=== PATIENT | female | born 1945 | race Caucasian/White ===

== ENCOUNTER 2019-11-09 12:17 | Outpatient (CLI) | payer MEDICARE, SELFPAY ==
--- NOTE | ~2019-11-09 | US_ITS ---
EXAMINATION: US thyroid DATE: 11/09/2019 13:07 INDICATION: Thyromegaly. TECHNIQUE: Multiple ultrasound images of the thyroid were obtained. COMPARISON: Ultrasound 11/04/2007 FINDINGS: The right thyroid lobe measures 6.4 x 2.7 x 2.6 cm. The left thyroid lobe measures 6.5 x 3.5 x 3.1 c m. The thyroid demonstrates heterogeneous echogenicity, which is chronic. No discrete nodule. Vascul arity is normal. IMPRESSION: 1. Chronically heterogeneous thyroid, likely chronic lymphocytic (Bill) thyroiditis. Reviewed, dictated and finalized at location A. SLATIVE CORRESPONDENT IMPRESSION: 1. Chronically heterogeneous thyroid, likely chronic lymphocytic (Bill) th yroiditis.
== END 2019-11-09 12:18 | disposition home or self-care (01) ==
LOC: ANHIMG 12:19
PROVIDERS: PCP Internal Medicine; Visit Provider Physician Assistant
DX: E01.0 Iodine-deficiency related diffuse (endemic) goiter (principal)
CPT/HCPCS: 76536

== ENCOUNTER → 2020-06-14 13:06 | Outpatient (CLI) | payer MEDICARE, SELFPAY ==
--- NOTE | ~2020-06-14 | XR_ITS ---
XR lumbar spine 2-3V 06/14/2020 13:41 Indication: Low back pain Procedure: 3 views lumbar spine Comparison: No prior studies for comparison. Findings: There is disc narrowing and endplate degenerative change at L4-5. There is disc narrowing a t the remainder of the lumbar disc levels, most advanced at L3-4, L4-5 and L5-S1. There is moderate m ultilevel facet hypertrophy. There is grade 1 cyst degenerative spondylolisthesis at L4-5. No acute f racture or traumatic malalignment. There are surgical clips in the right mid abdomen. Impression: 1: Moderate-severe lumbar spondylosis. Reviewed, dictated and finalized at location A. Impression: 1: Moderate-severe lumbar spondylosis.
== END ==
PROVIDERS: PCP Internal Medicine; Visit Provider Internal Medicine
DX: M54.9 Dorsalgia, unspecified (principal); M47.816 Spondylosis without myelopathy or radiculopathy, lumbar region
CPT/HCPCS: 72100

== ENCOUNTER → 2020-11-04 17:05 | Outpatient (CLI) | payer MEDICARE, SELFPAY ==
--- NOTE | ~2020-11-04 | MM_ITS ---
EXAMINATION: MM screening rell BI w libby HISTORY: Screening mammogram, family history of breast cancer in her mother and sister. TECHNIQUE: Craniocaudal and mediolateral oblique 3-D tomosynthesis images were obtained and synthetic 2-D images were generated. CAD analysis was submitted and interpreted. COMPARISON: 09/15/2019, 07/19/2018, 05/06/2017 BREAST PARENCHYMAL COMPOSITION: There are scattered areas of fibroglandular density. FINDINGS: Scattered benign-appearing calcifications are present. There is no evidence of suspicious m ass, calcification, or architectural distortion to suggest malignancy in either breast. There has bee n no suspicious interval change. IMPRESSION: 1. No mammographic evidence of malignancy. 2. Recommend routine screening mammography in one year. BI-RADS Category 2: Benign finding(s). Reviewed, dictated and finalized at location A. TECH
== END ==
PROVIDERS: Visit Provider Obstetrics & Gynecology
DX: Z12.31 Encounter for screening mammogram for malignant neoplasm of breast (principal)
CPT/HCPCS: 77063; 77067

== ENCOUNTER → 2020-11-15 12:49 | Outpatient (CLI) | payer MEDICARE, SELFPAY ==
--- NOTE | ~2020-11-15 | XR_ITS ---
EXAMINATION: XR lumbar spine min 4V DATE: 11/15/2020 13:24 INDICATION: Low back pain TECHNIQUE: Anteroposterior and lateral in neutral, flexion and extension views of the lumbar spine, a nd cone-down lateral view of the lumbosacral junction were obtained. COMPARISON: 06/14/2020 FINDINGS: There are 4 mm of anterolisthesis of L4 on L5. No laxity is present with flexion or extensi on. There is severe loss of intervertebral disc space height at L4-5. Moderate loss of intervertebral disc space height is present throughout the remainder of the lumbar spine. The vertebral body height s are maintained. There is no fracture. Moderate facet osteoarthritis is noted in the lower lumbar sp ine. There are surgical clips in the right upper quadrant with chronic pneumobilia. IMPRESSION: 1. Moderate to severe lumbar spondylosis without acute findings or significant interval change. Reviewed, dictated and finalized at location A. ER GUN
== END ==
PROVIDERS: PCP Internal Medicine
DX: M54.5 Low back pain (principal); M47.816 Spondylosis without myelopathy or radiculopathy, lumbar region
CPT/HCPCS: 72110

== ENCOUNTER → 2021-07-28 03:28 | Outpatient (CLI) | payer MEDICARE, SELFPAY ==
[2021-07-28 19:59] LABS: SARS-CoV-2 RNA PCR Negative
== END ==
PROVIDERS: PCP Internal Medicine; Visit Provider Physician Assistant
DX: Z01.812 Encounter for preprocedural laboratory examination (principal); Z20.822 Contact with and (suspected) exposure to COVID-19
CPT/HCPCS: C9803; U0003; U0005

== ENCOUNTER → 2021-12-19 04:49 | Outpatient (CLI) | payer MEDICARE, SELFPAY ==
[2021-12-19 12:35] LABS: SARS-CoV-2 RNA PCR Negative
== END ==
PROVIDERS: PCP Internal Medicine; Visit Provider Physician Assistant
DX: R68.89 Other general symptoms and signs (principal); Z20.822 Contact with and (suspected) exposure to COVID-19
CPT/HCPCS: C9803; U0003; U0005

== ENCOUNTER → 2022-01-15 10:44 | Outpatient (CLI) | payer MEDICARE, SELFPAY ==
--- NOTE | ~2022-01-15 | MM_ITS ---
EXAMINATION: MM screening rell BI w libby HISTORY: Screening TECHNIQUE: Craniocaudal and mediolateral oblique 3-D tomosynthesis images were obtained and synthetic 2-D images were generated. CAD analysis was submitted and interpreted. COMPARISON: Comparison to multiple prior studies sequentially, with oldest reviewed study dated 12/2014. BREAST PARENCHYMAL COMPOSITION: The breasts are heterogenously dense, which may obscure small masses FINDINGS: There are extensive benign bilateral breast calcifications unchanged. There is no evidence of suspicious mass, calcification, or architectural distortion to suggest malignancy in either breast . There has been no suspicious interval change. IMPRESSION: 1. No mammographic evidence of malignancy. 2. Recommend routine screening mammography in one year. BI-RADS Category 2: Benign finding(s). Reviewed, dictated and finalized at location A.
== END ==
PROVIDERS: PCP Internal Medicine; Visit Provider Obstetrics & Gynecology
DX: Z12.31 Encounter for screening mammogram for malignant neoplasm of breast (principal)
CPT/HCPCS: 77063; 77067

== ENCOUNTER 2023-02-08 12:39 | Outpatient (CLI) | payer MEDICARE, SELFPAY ==
[2023-02-08 13:48] LABS: SARS-CoV-2 RNA PCR Negative (Negative)
== END 2023-02-08 12:40 | disposition home or self-care (01) ==
PROVIDERS: PCP Internal Medicine; Visit Provider Physician Assistant
DX: R68.89 Other general symptoms and signs (principal); Z20.822 Contact with and (suspected) exposure to COVID-19
CPT/HCPCS: U0003; U0005

== ENCOUNTER → 2023-04-09 15:35 | Outpatient (CLI) | payer MEDICARE, SELFPAY ==
--- NOTE | ~2023-04-09 | MM_ITS ---
EXAMINATION: MM screening rell BI w libby HISTORY: Screening mammogram, family history of breast cancer in her mother and sister. TECHNIQUE: Craniocaudal and mediolateral oblique 3-D tomosynthesis images were obtained and synthetic 2-D images were generated. CAD analysis was submitted and interpreted. COMPARISON: 01/15/2022, 11/04/2020, 09/15/2019 BREAST PARENCHYMAL COMPOSITION: The breasts are heterogeneously dense, which may obscure small masses . FINDINGS: Scattered benign-appearing calcifications are present. No suspicious mass, calcification, o r architectural distortion are identified in either breast to suggest malignancy. There has been no s uspicious interval change. IMPRESSION: 1. No mammographic evidence of malignancy. 2. Recommend routine screening mammography in one year. BI-RADS Category 2: Benign finding(s). Reviewed, dictated and finalized at location A.
== END ==
PROVIDERS: PCP Obstetrics & Gynecology; Visit Provider Obstetrics & Gynecology
DX: Z12.31 Encounter for screening mammogram for malignant neoplasm of breast (principal)
CPT/HCPCS: 77063; 77067

== ENCOUNTER 2023-04-26 14:04 | Outpatient (CLI) | payer MEDICARE, SELFPAY ==
--- NOTE | ~2023-04-26 | XR_ITS ---
Right foot Technique: AP, oblique, and lateral views were obtained. Clinical History: Pain Findings: No acute fracture or dislocation is seen. There is severe osteoarthritis of the first metat arsophalangeal joint. There is probable mild degenerative change of the tarsometatarsal articulations . Soft tissues are unremarkable. Impression: No fracture or dislocation. Severe osteoarthritis of the first metatarsophalangeal joint. Mild degenerative change of the tarsometatarsal articulations. Reviewed, dictated and finalized at location M. Impression: No fracture or dislocation. Severe osteoarthritis of the first metatarsophalangeal joint. Mild degenerative change of the tarsometatarsal articulations.
--- NOTE | ~2023-04-26 | XR_ITS ---
Right ankle Technique: AP, oblique, and lateral views were obtained. Clinical History: Swelling Findings: No acute fracture or dislocation is seen. Osseous alignment is anatomic. Ankle mortise and other visualized joint spaces are preserved. There is mild diffuse soft tissue edema, especially over the lateral ankle. Impression: Mild diffuse soft tissue edema, especially of the lateral ankle, nonspecific. Reviewed, dictated and finalized at [facility]. Impression: Mild diffuse soft tissue edema, especially of the lateral ankle, nonspecific.
== END 2023-04-26 14:05 | disposition home or self-care (01) ==
PROVIDERS: PCP Internal Medicine; Visit Provider Physician Assistant
DX: M25.471 Effusion, right ankle (principal); M19.071 Primary osteoarthritis, right ankle and foot
CPT/HCPCS: 73610; 73630

== ENCOUNTER 2024-06-14 10:29 | Emergency (ER) | payer MEDICARE, SELFPAY ==
[2024-06-14] VITALS (21 sets, daily range): BP systolic 123–206; BP diastolic 64–101; PULSE 75–104; RESP 12–21; TEMP 36.9; O2SAT 99–100
--- NOTE | ~2024-06-14 | CT_ITS ---
EXAMINATION: CTA brain carotid DATE: 06/14/2024 11:06 INDICATION: Headache. Stroke. TECHNIQUE: Computed tomographic angiography (CTA) of the head was performed without and with 100 mL O mnipaque-350 intravenous contrast. CTA of the neck was performed with intravenous contrast. Automated exposure control and iterative reconstruction technique were employed. The dose-length product was 1 431.19 mGy-cm. Maximum intensity projection and volume rendered 3D-reconstructions were created by audrey bowling technologist on a separate workstation. COMPARISON: None. FINDINGS: HEAD CTA: There are scattered areas of low attenuation in the cerebral white matter. There is no acut e infarction or abnormal intracranial mass lesion. There are small foci of acute subarachnoid hemorrh age superior to right frontal lobe. The ventricles are normal in size. There is mild mucosal thickeni ng in the ethmoid sinuses. The mastoid air cells are normal. There are likely changes of ocular lens replacement surgeries. There is a left-sided scalp hematoma. Right vertebral artery is dominant. Ther e is no significant stenosis of basilar artery or the posterior cerebral arteries. There is no signif icant stenosis of the intracranial internal carotid arteries or anterior or middle cerebral arteries. Anterior communicating artery is normal. The posterior communicating arteries are normal. There is n o aneurysm. NECK CTA: There are no pathologically enlarged lymph nodes. There is a endotracheal tube tip in expec jayashree position. Partially visualized is a nasogastric tube. There is no significant stenosis of the ady tebral arteries. There is plaque in the proximal internal carotid arteries. There is 0% stenosis of t he proximal right internal carotid artery relative to normal distal artery lumen diameter (NASCET cri teria). There is 0% stenosis of the proximal left internal carotid artery relative to normal distal a rtery lumen diameter. There is severe cervical spondylosis. There is mild chronic anterior wedging of C7 and T1 vertebral bodies. IMPRESSION: 1. Small volume of acute subarachnoid hemorrhage superior to right frontal lobe. I called this result to Dr. Alvarado. 2. Moderate nonspecific cerebral white matter disease, which likely represents chronic small vessel i schemic disease. 3. No aneurysm or significant intracranial arterial stenosis. 4. 0% stenosis of the proximal internal carotid arteries relative to normal distal artery lumen diame ters (NASCET criteria). Reviewed, dictated and finalized at location A. IMPRESSION: 1. Small volume of acute subarachnoid hemorrhage superior to right frontal lobe . I called this result to Dr. Alvarado. 2. Moderate nonspecific cerebral white matter disease, which likely represents chronic small vessel ischemic disease. 3. No aneurysm or significant intracranial arterial stenosis. 4. 0% stenosis of the proximal internal carotid arteries relative to normal dis mario artery lumen diameters (NASCET criteria).
--- NOTE | ~2024-06-14 | XR_ITS ---
EXAMINATION: XR chest ET placement, XR abdomen gastric tube insert DATE: 06/14/2024 10:54 INDICATION: Endotracheal tube placement and orogastric tube placement. TECHNIQUE: 1. AP view of the chest was obtained. 2. AP view of the abdomen was obtained. COMPARISON: None FINDINGS: Endotracheal tube tip 1.0 cm above the tomás. Nasogastric tube tip in proximal side port in the body of the stomach. There is enlargement of the central pulmonary arteries consistent with pulmonary arterial hypertensio n. Mild linear discoid atelectasis in the lateral right midlung zone. No other airspace opacities, pu lmonary edema, pleural effusion or pneumothorax. Heart size within normal limits for AP technique. [place] perior right mediastinal opacities which appear to correspond to a tortuous vasculature on carotid CT dated 10/24/2019. Cholecystectomy clips in right upper quadrant. No dilated loops of gas-filled bowel to suggest obstruction. IMPRESSION: 1. Endotracheal tube and nasogastric tube in expected positions. 2. Enlargement of the central pulmonary arteries consistent with pulmonary arterial hypertension. Reviewed, dictated and finalized at location B. IMPRESSION: 1. Endotracheal tube and nasogastric tube in expected positions. 2. Enlargement of the central pulmonary arteries consistent with pulmonary shanice rial hypertension.
--- NOTE | 2024-06-14 10:36 | ED.NEUROSD ---
HPI - Neuro Symptoms/Deficit General Chief Complaint: Suspected CVA Stated Complaint: Code stroke Time Seen by Provider: 06/14/24 10:30 History of Present Illness HPI Narrative: Patient is an 78-year-old female who presents ER with reports of unresponsiveness per EMS and possible stroke. Patient at 8:30 a.m. had sudden onset headache. At 9:30 a.m. she collapsed to the ground. A data assistant went and got the neighbor who then called 911. Patient is not on blood thinning medications. Patient became combative and ambulance and is screaming and fighting. Cannot follow any commands. She has full strength in all extremities no facial droop. Related Data Home Medications Medication Instructions Recorded Confirmed aspirin 325 mg tablet 325 mg PO DAILY 08/28/19 03/07/24 vit C 226 mg-vit E 90 mg-copper cap PO 08/28/19 03/07/24 0.8 mg-zinc oxide-lutein 5 mg capsule (PreserVision Lutein) allopurinol 300 mg tablet 300 mg PO DAILY 09/14/23 03/07/24 fexofenadine 180 mg tablet 180 mg PO DAILY 03/07/24 03/07/24 (Mckayla Allergy) Allergies Allergy/AdvReac Type Severity Reaction Status Date / Time acetaminophen Allergy Severe liver Verified 03/07/24 07:50 problem aspirin Allergy Intermediate Unknown Verified 03/07/24 07:50 [From Darvon Compound-65] caffeine Allergy Intermediate Unknown Verified 03/07/24 07:50 [From Darvon Compound-65] tree and shrub pollen Allergy Intermediate Sneezing Verified 03/07/24 07:50 codeine Allergy Mild Hallucinati Verified 03/07/24 07:50 ng levofloxacin Allergy Mild unkown Verified 03/07/24 07:50 meperidine Allergy Mild Rash,Itchin Verified 06/14/24 11:15 g Penicillins Allergy Mild Rash Verified 03/07/24 07:50 propoxyphene Allergy Mild unknown Verified 03/07/24 07:50 venom-wasp Allergy Unknown Hives, Verified 03/07/24 07:50 swelling SEAFOOD Allergy Severe violently Uncoded 03/07/24 07:50 ill per pt Yellow Hornet Allergy Severe Swelling Uncoded 03/07/24 07:50 Yellow Jacket Allergy Severe Swelling Uncoded 03/07/24 07:50 Dust Allergy Intermediate Wheezing Uncoded 03/07/24 07:50 Grass Allergy Intermediate Wheezing Uncoded 03/07/24 07:50 Review of Systems Review of Systems: ROS unobtainable: Yes unobtainable due to mental status PMFSH Past Medical History Medical History Arthritis Asthma Bronchitis Cataract Diabetes GERD (gastroesophageal reflux disease) Glaucoma Hypertension Hypothyroidism Liver disease Mitral valve prolapse Olecranon bursitis, right elbow Osteoporosis Pneumonia Rectal polyp Surgical History Surgical History H/O breast surgery (~1999) 2000 - L breast biopsy benign H/O cataract removal with insertion of prosthetic lens H/O gynecological procedure 10/04/1981 NAM BSO - uterine fibroids H/O: hysterectomy History of appendectomy History of knee replacement Hx of cholecystectomy Hx of tonsillectomy Family History Family History Father Patient's father is Family history of pancreatic cancer Sibling Family history of arthritis Family history of malignant neoplasm of breast in first degree relative Patient's sister is , Onset Age: 1 Mother Family history of Alzheimer's disease Family history of congestive heart failure Patient's mother is Social History Social History Smoking status: Never smoker Second hand tobacco smoke exposure: No Alcohol intake: never Substance use: never Lack of Transportation: No Lack of Food: Never True Current Housing: I Have Housing Concerned About Future Housing: No Difficulty Paying Gas/Electric Bills: No Difficulty Paying for Meds: No Currently Unemployed: No Education: High School Diploma
--- NOTE | 2024-06-14 10:44 | ECG_ITS ---
Test Date: 2024-06-14 11:15:32 Measurements Intervals [place] Rate: 102 P: 14 [place]: 154 QRS: -20 QRSD: 99 T: 65 QT: 338 QTc: 441 Interpretive Statements SINUS TACHYCARDIA CANNOT R/O SEPTAL INFARCT, AGE INDETERMINATE BORDERLINE ST-T WAVE ABNORMALITY- ANTEROLAT/HIGH LAT LEADS BASELINE ARTIFACT- I, II, III, AVR, AVL, AVF, V1-V6 ABNORMAL ECG No previous ECG available for comparison Electronically Signed On 06-14-2024 11:43:30 CDT by Héctor Peña D.O.
[2024-06-14] MEDS: PROPOFOL IV EMULSION 100 ML 2.22 MG IV CONT (10:46)
--- NOTE | 2024-06-14 10:51 | PC.NURSE ---
Dr Alvarado pushed propofol 50mg/5ml push for sedation - pt on her way to CT scan
[2024-06-14 10:54] LABS: Basophils Absolute Auto 0.1 K/mm3 (0.0-0.1); Basophils Percent Auto 0.5 % (0.2-1.2); Eosinophils Absolute Auto 0.1 K/mm3 (0-0.3); Eosinophils Percent Auto 0.7 % (0-4.4); Hematocrit 43.3 % (37.0-47.0); Hemoglobin 13.8 g/dL (12.0-15.0); Immature Granulocyte Absolute 0.06 K/mm3 (0.00-0.031); Immature Granulocyte Percent A 0.6 % (0-0.5); Lymphocytes Absolute Auto 1.77 K/mm3 (0.9-3.2); Lymphocytes Percent Auto 16.8 % (18.3-44.2); Mean Corpuscular HGB Conc 31.9 g/dl (32-36); Mean Corpuscular Hemoglobin 29.6 pg (26-34); Mean Corpuscular Volume 92.9 fl (80-100); Mean Platelet Volume 10.2 fl (7.4-10.4); Monocytes Absolute Auto 0.7 K/mm3 (0.1-0.6); Monocytes Percent Auto 6.2 % (2.6-8.5); Neutrophils Absolute Auto 7.9 K/mm3 (1.3-6.7); Neutrophils Percent Auto 75.2 % (45.5-73.1); Platelet Count Result 263 k/mm3 (150-375); Red Blood Count 4.66 M/mm3 (4.2-5.4); Red Cell Distribution Width 15.6 % (11.5-14.5); White Blood Count 10.5 K/mm3 (4.5-10.0)
[2024-06-14 11:04] LABS: Prothrombin Time 13.7 Seconds (11.1-14.7)
[2024-06-14 11:05] LABS: Partial Thromboplastin Time 33.1 Seconds (22.3-36.8)
[2024-06-14 11:08] LABS: Alanine Aminotransferase 13 U/L (6-35); Albumin Level 4.8 g/dL (3.5-5.1); Alkaline Phosphatase 71 U/L (38-126); Anion Gap 14 mmol/L (4-12); Aspartate Amino Transferase 32 U/L (14-36); Bilirubin,Total 0.7 mg/dL (0.2-1.3); Blood Urea Nitrogen 19 mg/dL (7-17); Carbon Dioxide 23 mmol/L (22-30); Chloride 98 mmol/L (98-107); Estimated Glomerular Filt Rate > 60; Glucose 128 mg/dL (65-110); Potassium 5.1 mmol/L (3.4-5.0); Sodium 135 mmol/L (137-145); Triglycerides 131 mg/dL (<150)
[2024-06-14 11:17] LABS: Troponin I < 0.012 ng/mL (0.000-0.034)
--- NOTE | 2024-06-14 11:33 | PC.NURSE ---
EDP Dr. Alvarado and ED respiratory at bedside upon pts arrival 1034 30mg of Etomidate administered 1035 100mg of Succinylcholine administered 1035 Pt intubated with a 7.5 in tube, 21 at the lip. Color change and chest rise and fall noted 1036 [address] order from EDP Dr. Alvarado for soft wrist restraints and restraints applied 1040 NG placed in the L nare by Javan DUFFY, spontaneous return noted 1043 Indwelling jefferson catheter placed by Thuy Student Nurse
[2024-06-14] MEDS: niCARdipine 20 MG/200 ML 20 MG/200 ML BAG 50 MG IV CONT (11:47)
== END 2024-06-14 12:47 | disposition short-term general hospital (02) ==
PROVIDERS: Emergency Provider Emergency Medicine; PCP Internal Medicine
DX: I60.9 Nontraumatic subarachnoid hemorrhage, unspecified (principal); J45.909 Unspecified asthma, uncomplicated; E11.9 Type 2 diabetes mellitus without complications; K21.9 Gastro-esophageal reflux disease without esophagitis; H40.9 Unspecified glaucoma; I10 Essential (primary) hypertension; E03.9 Hypothyroidism, unspecified; M81.0 Age-related osteoporosis without current pathological fracture
CPT/HCPCS: 31500; 36415; 70496; 70498; 80053; 84478; 84484; 85025; 85610; 85730; 93005; 96365; 96367; 99291; J0330; J2404; J2704; Q9967